=== PATIENT | male | born 1960 | race American Indian/Alaskan Native ===

== ENCOUNTER 2016-09-23 08:25 | Emergency (ER) | payer SELFPAY ==
[2016-09-23] MEDS ORDERED: ZESTRIL PO ONE (10:59)
--- NOTE | 2016-09-23 12:01 | XRay Report ---
CHEST ONE VIEW INDICATION: Upper back pain and hypertension. COMPARISON: 01/07/2016. FINDINGS: Portable, single, frontal chest radiograph demonstrates normal cardiomediastinal silhouette. Clear lungs. Intact bones. CONCLUSION: No acute disease in the chest. Thank you for the opportunity to participate in this patient's care.
--- NOTE | 2016-09-23 12:05 | XRay Report ---
THORACIC SPINE: The bones are normally mineralized with well preserved vertebral height, alignment and interspace distances. No paraspinal soft tissue widening is noted. IMPRESSION: Normal study.
--- NOTE | 2016-09-23 12:16 | Emergency Department Report ---
ED Back Pain/Injury HPI - General Chief Complaint: High BP Stated Complaint: HTN/Back Pain Time Seen by Provider: 09/23/16 10:44 Source: patient Limitations: No Limitations - History of Present Illness Initial Comments: Patient states he injured his upper back just below her shoulder blades doing painting over the weekend. Patient also states he's been out of his blood pressure medicine for several months. Patient denies any symptoms. Associated with blood pressure. Patient denies headache, blurred vision, paresthesias, chest pain, shortness of breath or dyspnea on exertion, or any abdominal pain. MD Complaint: back pain, back injury - Related Data Previous Rx's Medication Instructions Recorded Last Taken Type Omeprazole Magnesium [PriLOSEC] 5 mg PO QDAY #60 suspdr.pkt 01/08/16 Unknown Rx amLODIPine [Norvasc] 10 mg PO DAILY #30 tablet 01/08/16 Unknown Rx Cyclobenzaprine [Flexeril] 10 mg PO TID PRN #20 tablet 09/23/16 Unknown Rx HYDROcodone/APAP 5-325 [Blair 1 each PO Q4HR PRN #8 tablet 09/23/16 Unknown Rx 5/325] Lisinopril [Zestril TAB] 10 mg PO QDAY #30 tablet 09/23/16 Unknown Rx Allergies Allergy/AdvReac Type Severity Reaction Status Date / Time No Known Allergies Allergy Unverified 11/29/14 03:55 ED Review of Systems ROS: Stated complaint: HTN/Back Pain Other details as noted in HPI Constitutional: denies: chills, fever Eyes: denies: eye pain, eye discharge, vision change ENT: denies: ear pain, throat pain Respiratory: denies: cough, orthopnea, shortness of breath, SOB with exertion, SOB at rest, stridor, wheezing Cardiovascular: denies: chest pain, palpitations Endocrine: no symptoms reported Gastrointestinal: denies: abdominal pain, nausea, vomiting, diarrhea, constipation, hematemesis, melena, hematochezia Genitourinary: denies: urgency, dysuria, frequency, hematuria, discharge, testicular pain Musculoskeletal: denies: back pain, joint swelling, arthralgia Skin: denies: rash, lesions Neurological: denies: headache, weakness, paresthesias Psychiatric: denies: anxiety, depression Hematological/Lymphatic: denies: easy bleeding, easy bruising ED Past Medical Hx - Past Medical History Previous Medical History?: Yes Hx Hypertension: Yes Hx GERD: Yes - Surgical History Past Surgical History?: No - Social History Smoking Status: Never Smoker Substance Use Type: Alcohol - Medications Home Medications: Home Medications Medication Instructions Recorded Confirmed Last Taken Type Omeprazole Magnesium [PriLOSEC] 5 mg PO QDAY #60 suspdr.pkt 01/08/16 Unknown Rx amLODIPine [Norvasc] 10 mg PO DAILY #30 tablet 01/08/16 Unknown Rx Cyclobenzaprine [Flexeril] 10 mg PO TID PRN #20 tablet 09/23/16 Unknown Rx HYDROcodone/APAP 5-325 [Blair 1 each PO Q4HR PRN #8 tablet 09/23/16 Unknown Rx 5/325] Lisinopril [Zestril TAB] 10 mg PO QDAY #30 tablet 09/23/16 Unknown Rx ED Physical Exam - General Limitations: No Limitations General appearance: alert, in no apparent distress - Head Head exam: Present: atraumatic, normocephalic - Eye Eye exam: Present: normal appearance, PERRL, EOMI - ENT ENT exam: Present: mucous membranes moist - Neck Neck exam: Present: normal inspection, full ROM. Absent: tenderness, meningismus, lymphadenopathy - Respiratory Respiratory exam: Present: normal lung sounds bilaterally. Absent: respiratory distress, wheezes, rales, rhonchi, stridor, chest wall tenderness, accessory muscle use, decreased breath sounds, prolonged expiratory - Cardiovascular Cardiovascular Exam: Present: regular rate. Absent: systolic murmur, diastolic murmur, rubs, gallop - GI/Abdominal GI/Abdominal exam: Present: soft, normal bowel sounds. Absent: distended, tenderness, guarding, rebound, rigid, diminished bowel sounds, hyperactive bowel sounds, hypoactive bowel sounds, organomegaly, mass, bruit, pulsatile mass - Rectal Rectal exam: Present: deferred - Extremities Exam Extremities exam: Present: normal inspection, full ROM, normal capillary refill. Absent: pedal edema - Back Exam Back exam: Present: normal inspection, paraspinal tenderness (mild thoracic paraspinous tenderness no vertebral point tenderness, no CVA tenderness). Absent: CVA tenderness (R), CVA tenderness (L) - Neurological Exam Neurological exam: Present: alert, oriented X3 - Psychiatric Psychiatric exam: Present: normal affect, normal mood - Skin Skin exam: Present: warm, dry, intact, normal color. Absent: rash ED Course Vital Signs 09/23/16 09/23/16 08:51 11:33 Temperature 98.3 F Pulse Rate 73 73 Respiratory 18 Rate Blood Pressure 160/91 160/91 O2 Sat by Pulse 99 Oximetry Critical care attestation.: If time is entered above; I have spent that time in minutes in the direct care of this critically ill patient, excluding procedure time. ED Disposition Clinical Impression: Hypertension, Thoracic back pain Disposition: DISCHARGED TO HOME OR SELFCARE Is pt being admited?: No Condition: Stable Instructions: Hypertension (ED), Back Pain (ED) Prescriptions: Cyclobenzaprine [Flexeril] 10 mg PO TID PRN #20 tablet PRN Reason: Muscle Spasm HYDROcodone/APAP 5-325 [Blair 5/325] 1 each PO Q4HR PRN #8 tablet PRN Reason: Pain Lisinopril [Zestril TAB] 10 mg PO QDAY #30 tablet Referrals: PRIMARY CARE, [Primary Care Provider] - 3-5 Days
[2016-09-23 12:37] VITALS: BP 142/98
== END 2016-09-23 12:35 | disposition home or self-care (01) ==
LOC: ED 08:25
DX: M54.6 Pain in thoracic spine (principal); I10 Essential (primary) hypertension; K21.9 Gastro-esophageal reflux disease without esophagitis
CPT/HCPCS: 71010; 72070; 99283